=== PATIENT | male | born 1980 | race Two or more races ===

== ENCOUNTER 2023-09-06 08:46 | Emergency (ER) | payer OTHER, SELFPAY ==
[2023-09-06 08:54] VITALS: BP 127/80; PULSE 87; RESP 17; TEMP 36.6; O2SAT 98; BMI 26.6
[2023-09-06 09:17] LABS: IDNOW Serial# 08D9AD1C; Strep A Nucleic Acid Negative (Negative)
--- NOTE | 2023-09-06 09:24 | ED_ITS ---
HPI - URI/Sore Throat General Chief Complaint: General Medical Stated Complaint: Sore Throat Fever Time Seen by Provider: 09/06/23 09:11 Source: patient Mode of arrival: ambulatory Limitations: no limitations History of Present Illness HPI Narrative: Patient is a 43-year-old male who presents emergency department for evaluation fever 2 days. Reports his daughter has recently been ill at home and tested positive for flu. Denies chills, headache, dizziness, neck pain, neck stiffness, chest pain, shortness of breath, difficulty breathing, cough, nausea, vomiting, abdominal pain, numbness or tingling of the extremities, genitourinary symptoms. Related Data Allergies Allergy/AdvReac Type Severity Reaction Status Date / Time No Known Allergies Allergy Verified 09/06/23 08:55 Review of Systems Review of Systems: Yes all other systems are reviewed and are negative [facility] Past Medical History Attestation statement: The following information was validated with the patient. Source: old records reviewed Social History Social History Advance Directives: No Advance Directives Information Provided: Yes Physical Exam Vital Signs: Vital Signs: Last Vital Signs Temp 98 F 09/06/23 08:54 Pulse 87 09/06/23 08:54 Resp 17 09/06/23 08:54 BP 127/80 09/06/23 08:54 Pulse Ox 98 09/06/23 08:54 O2 Del Method Room Air 09/06/23 08:54 BMI result Body Mass Index 26.6 Appearance: Alert.?Oriented to person, place and time. No acute distress.?Normal affect. Eyes: Pupils equal, round and reactive to light.? ENT: TM normal bilaterally. Pharynx Mildly erythematous, no exudates. Uvula midline. No trismus. No drooling. Neck: Normal inspection.? Neck supple.??No cervical adenopathy CVS: Heart sounds normal. Normal heart rate and rhythm.? Pulses normal.?? Respiratory: No respiratory distress.? Lung sounds clear to auscultation bi laterally?? Abdomen: Soft and non-tender. Normoactive bowel sounds. Skin: Skin warm and dry.? Normal skin color.? ? Extremities: No lower extremity edema.? Neuro: Moves all extremities spontaneously. Sensation intact bilaterally. No motor deficits. Ambulates with normal steady gait. Medical Decision Making Medical Decision Making MDM Narrative: Patient is a 43-year-old male, presenting for evaluation of upper respiratory symptoms. COVID-19 testing negative. Influenza a testing positive, given duration of symptoms discussed Tamiflu, patient declines interest. Strep a testing is negative, exam not consistent with peritonsillar or retropharyngeal abscess. Well-appearing, nontoxic, afebrile, no tachycardia or tachypnea/hypoxia. Speaking clear full sentences, ambulatory with steady gait. Discussed conservative treatment including rest, hydration, Tylenol/ibuprofen as needed for fever and body aches, saline nasal spray, humidifier, qfzq-mqt-prlniqu cold medication. Advised to follow-up with primary care provider as needed, discussed reasons to return back to the emergency department. All questions were answered. Patient discharged home in stable condition. Differential Diagnosis Differential Diagnoses: The differential diagnosis associated with the presentation includes ( See narrative above) Admission/Observation Consideration of admission/observation: Escalation of care including admission/observation considered ( see narrative above) Lab Data MDM Lab Attestation statement: I reviewed the patient's lab results. ( see narrative above) Labs: Lab Results 09/06/23 Range/Units 09:01 Influenza Type A (PCR) POSITIVE A (Negative) Influenza Type B (PCR) NEGATIVE (Negative) RSV RNA Qual (PCR) NEGATIVE (Negative) SARS-CoV-2 RNA (RT-PCR) NEGATIVE (Negative) S. pyogenes GrpA JOSE ALFREDO Negative (Negative) Prescription Management I considered prescription management with: Pain Medication ( acetaminophen/ibuprofen) and Antibiotic ( suspect viral etiology antibiotics deferred) Discharge Plan Discharge Clinical Impression: Influenza A Patient Disposition: Home, Self-Care Instructions: Influenza (ED) Additional Instructions: Be sure to rest, stay well hydrated drinking plenty of fluids, eat small frequent meals. Tylenol/ibuprofen can be used as needed for fever/pain. Lpoc-btt-jbhdoht cold medications may be helpful as well for symptoms. Saline nasal spray, humidifier may be helpful for nasal congestion. You may return to the emergency department with any new or worsening symptoms or concerns. Follow-up with your primary care provider as needed. Should remain out of school/ work until symptoms have resolved and have been without a fever for 24 hours without the use of Tylenol or ibuprofen. Referrals: Physician,None [Primary Care Provider] - Print Language: Turkmen
--- NOTE | 2023-09-06 09:24 | ED.GENADULT ---
HPI - General Adult General Chief complaint: General Medical Stated complaint: Sore Throat Fever Time Seen by Provider: 09/06/23 09:11 Related Data Allergies Allergy/AdvReac Type Severity Reaction Status Date / Time No Known Allergies Allergy Verified 09/06/23 08:55 PMFSH Social History Social History Advance Directives: No Advance Directives Information Provided: Yes Physical Exam ED Vital Signs: Vital Signs - 24 hr 09/06/23 08:54 Temperature 98 F Pulse Rate 87 Respiratory Rate 17 Blood Pressure 127/80 Pulse Oximetry 98 Oxygen Delivery Method Room Air BMI result Body Mass Index 26.6 Medical Decision Making Lab Data Labs: Lab Results 09/06/23 Range/Units 09:01 S. pyogenes GrpA JOSE ALFREDO Negative (Negative) Discharge Plan Discharge Print Language: Amharic
[2023-09-06 09:44] LABS: Influenza A PCR POSITIVE (Negative); Influenza B PCR NEGATIVE (Negative); Resp Syncy Virus RNA Qual PCR NEGATIVE (Negative); SARS COV2 PCR INHOUSE NEGATIVE (Negative)
[2023-09-06 09:53] VITALS: BP 127/80; PULSE 87; RESP 17; TEMP 36.6; O2SAT 98
== END 2023-09-06 09:52 | disposition home or self-care (01) ==
PROVIDERS: Emergency Provider Emergency Medicine
DX: J10.1 Influenza due to other identified influenza virus with other respiratory manifestations (principal)
CPT/HCPCS: 0241U; 87651; 99283; 99284

== ENCOUNTER 2023-09-11 10:41 | Outpatient (AMB) | payer OTHER, SELFPAY ==
[2023-09-11 11:07] VITALS: BP 112/70; PULSE 79; TEMP 37; O2SAT 97; BMI 27.6
--- NOTE | 2023-09-11 11:07 | MHC.OFFWIV ---
Intake Vital Signs 09/11/23 11:07 Height 5 ft 3 in Weight 156 lb BMI 27.6 BP 112/70 Blood Pressure Location Lt brachial Position Sitting Pulse 79 Pulse Source Pulse Oximeter Temp 98.6 F Temp Source Temporal Artery Scan Pulse Oximetry (%) 97 Oxygen Delivery Method Room Air Intake Visit Reasons: EP Sore throat, headache, Fever Intake Note: pt is here today for sore throat headache fever started 1 week ago Patient Tobacco Use Status: Never used Tobacco Allergies No Known Allergies Allergy (Verified 09/11/23 11:28) Medication List - Last Reconciled 09/11/23 by Aftab Booker MD No Known Home Meds Do you need a note to return to daycare/school/sports/work: Yes HPI EP Sore throat, headache, Fever HPI Details 43 yr old male presents to the office for a sick visit. Charge Preparation Technician used. He was in the ER with URI sx over the weekend. Was diagnosed with Influenza A. Feeling much better, but needs a note for work. Reports he has no PCP. PFSH Social History Patient Tobacco Use Status: Never used Tobacco Physical Exam Vital Signs: Last Vital Signs Temp 98.6 F 09/11/23 11:07 Pulse 79 09/11/23 11:07 BP 112/70 09/11/23 11:07 Pulse Ox 97 09/11/23 11:07 Oxygen Delivery Method Room Air 09/11/23 11:07 BMI result Body Mass Index 27.6 Const General: cooperative, healthy appearing, comfortable and no acute distress Orientation/consciousness: patient oriented x3 Chest Chest palpation & inspection: normal inspection of the chest Resp Effort & Inspection: normal respiratory effort and able to speak in complete sentences Neuro General: patient oriented x3 Assessment & Plan Assessment & Plan (1) Influenza A: Code(s): J10.1 - Influenza due to other identified influenza virus with other respiratory manifestations Plan: Sx have resolved. NFW provided. Coding Level of Care Code Est Pt Level 3 (75405) Diagnoses Influenza A J10.1
== END 2023-09-11 12:09 | disposition home or self-care (01) ==
PROVIDERS: PCP Internal Medicine; Visit Provider Internal Medicine
DX: J10.1 Influenza due to other identified influenza virus with other respiratory manifestations (principal)
CPT/HCPCS: 99213

== ENCOUNTER 2024-01-13 07:31 | Outpatient (AMB) | payer OTHER, SELFPAY ==
[2024-01-13 07:33] VITALS: BP 120/80; PULSE 79; O2SAT 97; BMI 26.9
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
== END 2024-01-13 11:47 | disposition home or self-care (01) ==
PROVIDERS: PCP Internal Medicine; Visit Provider Internal Medicine
DX: Z00.00 Encounter for general adult medical examination without abnormal findings (principal)
CPT/HCPCS: 99396

== ENCOUNTER 2024-01-13 08:26 | Outpatient (REF) | payer OTHER, SELFPAY ==
[2024-01-13 10:09] LABS: MANUAL DIFF FLAG NO
[2024-01-13 10:16] LABS: Basophils Percent Auto 0.5 % (0-2); Eosinophils Absolute Auto 0.1 X10*3/uL (0.0-0.4); Eosinophils Percent Auto 1.5 % (0-4); Hematocrit 46.6 % (42.0-52.0); Hemoglobin 15.7 g/dl (14.0-18.0); Imm Gran Abs Auto 0.03 X10*3/uL (0.00-0.03); Imm Gran Pct Auto 0.4 % (0.0-0.4); Lymphocytes Absolute Auto 1.2 X10*3/uL (1.2-4.9); Lymphocytes Percent Auto 15.5 % (20-40); Mean Corpuscular HGB Conc 33.7 g/dl (31.0-36.0); Mean Corpuscular Hemoglobin 29.5 pg (27.0-33.0); Mean Corpuscular Volume 87.4 fL (80.0-98.0); Mean Platelet Volume 10.3 fL (9.4-12.4); Monocytes Absolute Auto 0.5 X10*3/uL (0.1-1.2); Monocytes Percent Auto 6.9 % (2-11); Neutrophils Absolute Auto 5.7 x10*3/uL (2.0-8.3); Neutrophils Percent Auto 75.2 % (45-73); Platelet Count 202 X10*3/uL (160-400); Red Blood Count 5.33 X10*6/uL (4.60-5.80); Red Cell Distribution Width 13.8 % (11.0-16.0); White Blood Count 7.6 X10*3/uL (4.8-10.8)
[2024-01-13 10:16] LABS: Appearance Urine Turbid; Color Urine Yellow; Glucose Urine UA Negative (Negative); Leukocyte Esterase Urine Trace (Negative); Nitrite Urine Negative (Negative); PH 5.5 (5.0-9.0); Specific Gravity - Urine 1.025 (1.005-1.025); UMIC TRIGGER UA YES; Urine Blood Small (1+) (Negative); Urine Ketones Negative (Negative); Urine Protein Trace mg/dL (Neg-Trace)
[2024-01-13 10:28] LABS: Bacteria Urine None Seen (None Seen); Hyaline Casts Urine 0-2 /LPF (0-2); Squamous Epithelial Cell Urine 0-2 /HPF (0-2)
[2024-01-13 11:35] LABS: Alanine Aminotransferase 20 U/L (0-40); Alkaline Phosphatase 71 U/L (39-117); Anion Gap 12 (12-20); Aspartate Amino Transferase 23 U/L (5-37); Bilirubin Total 0.4 mg/dL (0.0-1.0); Blood Urea Nitrogen 13 mg/dL (9-16); Calcium 9.3 mg/dL (8.4-10.2); Carbon Dioxide 27 mmol/L (22-29); Chloride 103 mmol/L (96-108); Cholesterol 225 mg/dL (<200); Estimated Glomerular Filt Rate > 60; Glucose Fasting 105 mg/dL (60-99); HDL Cholesterol 42 mg/dL (>40); LDL Cholesterol Calculated 149 mg/dL (<100); Potassium 3.9 mmol/L (3.3-5.1); Sodium 138 mmol/L (135-145); Total Protein 8.2 g/dL (6.5-8.0); Triglycerides 171 mg/dL (<150)
== END 2024-01-13 08:27 | disposition home or self-care (01) ==
LOC: HO.HMGCLDS 08:26
PROVIDERS: Visit Provider Internal Medicine
DX: Z00.00 Encounter for general adult medical examination without abnormal findings (principal)
CPT/HCPCS: 36415; 80053; 80061; 81001; 85025

== ENCOUNTER 2024-01-17 13:22 | Outpatient (AMB) | payer OTHER, SELFPAY ==
--- NOTE | 2024-01-17 13:25 | MHC.OFFWIV ---
Intake Vital Signs 01/17/24 13:27 Height 5 ft 3 in Weight 153 lb BMI 27.1 BP 110/70 Blood Pressure Location Rt brachial Position Sitting Pulse 68 Pulse Source Pulse Oximeter Pulse Oximetry (%) 98 Oxygen Delivery Method Room Air Intake Visit Reasons: EP- Reaction to meds, Norwegian Speaking Intake Note: Patient here to reaction to med that was given by pcp, states yesterday he started to have chest pain and double vision. Patient Tobacco Use Status: Never used Tobacco Allergies No Known Allergies Allergy (Verified 01/17/24 13:28) Do you need a note to return to daycare/school/sports/work: No HPI HPI Comments History of Present Illness Details 43 y/o Norwegian speaking male patient who presents to the walk in c/o medication reaction. Pt was recently seen for Physical Examination by PCP and his U/A indicated UTI. He was prescribed Ciproflaxin BID for 7 days. Today Pt reports taking it yesterday Morning and evening. He does report feeling malaise, blurry vision and chest tightness immediately after taking medicine. Denies SOB, Facial or tongue swelling or Rash/hives. 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, 4 children, management, Housing: Apartment Patient Tobacco Use Status: Never used Tobacco e-Cigarette/Vaping Use: Never Used service: No Current occupational status: employed Cognitive needs: No Hearing needs: No Vision needs: No Review of Systems Const All systems reviewed & are unremarkable except as noted in HPI and below Physical Exam Vital Signs: Last Vital Signs Pulse 68 01/17/24 13:27 BP 110/70 01/17/24 13:27 Pulse Ox 98 01/17/24 13:27 Oxygen Delivery Method Room Air 01/17/24 13:27 BMI result Body Mass Index 27.1 Const General: cooperative and comfortable Orientation/consciousness: patient oriented x3 Resp Effort & Inspection: normal respiratory effort and able to speak in complete sentences Auscultation: clear to auscultation bilaterally, no crackles, no rales, no rhonchi and no wheezes Cardio Heart sounds: S1 normal heart sound present and S2 normal heart sound present Neuro General: patient oriented x3, gait normal and moves all extremities Psych Speech and movement: Normal speech and movement present Assessment & Plan Assessment & Plan (1) UTI (urinary tract infection): Code(s): N39.0 - Urinary tract infection, site not specified Qualifiers: Urinary tract infection type: acute cystitis Hematuria presence: without hematuria Qualified Code(s): N30.00 - Acute cystitis without hematuria Plan: Discontinue Cipro. Most likely not an allergy. Probably sensitivity. Ordered Macrobid No symptoms today. (2) Medication reaction: Code(s): T50.905A - Adverse effect of unspecified drugs, medicaments and biological substances, initial encounter Qualifiers: Encounter type: initial encounter Qualified Code(s): T50.905A - Adverse effect of unspecified drugs, medicaments and biological substances, initial encounter Plan: Not true Allergy , Probably sensitivity Stop Cipro May Take Benadrly Medications: New nitrofurantoin monohyd/m-cryst 100 mg (Macrobid) must administer with a meal/food 100 mg PO Q12H 7 days 14 caps 0RF N30.00 - Acute cystitis without hematuria Discontinued ciprofloxacin HCl Discontinued Reason: Patient no longer taking 500 mg PO BID 20 tabs 0RF Coding Level of Care Code Est Pt Level 3 (88741) Diagnoses Acute cystitis without hematuria N30.00 Urinary tract infection type: acute cystitis Hematuria presence: without hematuria Adverse effect of drug, initial encounter T50.905A Encounter type: initial encounter Time Spent (min) 15
[2024-01-17 13:27] VITALS: BP 110/70; PULSE 68; O2SAT 98; BMI 27.1
== END 2024-01-17 13:54 | disposition home or self-care (01) ==
PROVIDERS: PCP Internal Medicine; Visit Provider Nurse Practitioner Family
DX: N30.00 Acute cystitis without hematuria (principal); T50.905A Adverse effect of unspecified drugs, medicaments and biological substances, initial encounter
CPT/HCPCS: 99213

== ENCOUNTER 2024-03-23 12:47 | Outpatient (AMB) | payer OTHER, SELFPAY ==
--- NOTE | 2024-03-23 13:18 | MHC.PC.OV ---
Vital Signs 03/23/24 13:19 Height 5 ft 3 in Weight 158 lb BMI 28.0 BP 108/78 Blood Pressure Location Lt brachial Position Sitting Pulse 82 Pulse Source Pulse Oximeter Pulse Oximetry (%) 97 Oxygen Delivery Method Room Air Intake Visit Reasons: heartburn symptoms Intake Note: Pt is here today for a follow up visit. Allergies ciprofloxacin [From Cipro] Adverse Reaction (Verified 03/23/24 15:24) Abdominal Pain Medication List - Last Reconciled 03/23/24 by Annette Caba MD No Known Home Meds Tobacco use date assessed: 03/23/24 Dental Screening Dental Screen Date: 01/13/24 HPI heartburn symptoms HPI Details Pt presents for follow-up of UTI. He completed a course of antibiotic and denies dysuria urinary frequency. 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, 4 children, management, Housing: Apartment Patient Tobacco Use Status: Never used Tobacco e-Cigarette/Vaping Use: Never Used service: No Current occupational status: employed Cognitive needs: No Hearing needs: No Vision needs: No Questionnaire Thrive Questionnaire Date Thrive assessed: 01/07/24 I am a: Patient What is your living situation today?: I have a steady place to live Within the past 12 months, did the food you bought not last and you didn't have the money to get more?: Sometimes True Within the past 12 months, did you worry whether your food would run out before you got money to buy more?: Sometimes True Do you have trouble paying for medicines?: Yes Do you have trouble getting transportation to medical appointments?: No Do you have trouble paying your heating and electricity bill?: No Do you have trouble taking care of your child, family member or friend?: No Do you have trouble with day-to-day activities such as bathing, preparing meals, shopping, managing finances, etc.?: No Are you currently unemployed and looking for a job?: Yes Are you interested in more education?: No THRIVE Score: 2 CHAUNCEY-7 AMB Questionnaire CHAUNCEY-7 Date CHAUNCEY - 7 assessed: 01/13/24 Source: Developed by Drs. Frederick Salamanca, Sofia Garcia, Markel Reid and colleagues, with an educational brooke from [employer]. Review of Systems Const All systems reviewed & are unremarkable except as noted in HPI and below ENT Reports no additional complaints Card Reports no additional complaints Resp Reports no additional complaints GI Reports no additional complaints Reports no additional complaints Physical exam (Primary Care) Vital Signs: Last Vital Signs Pulse 82 03/23/24 13:19 BP 108/78 03/23/24 13:19 Pulse Ox 97 03/23/24 13:19 Oxygen Delivery Method Room Air 03/23/24 13:19 BMI result Body Mass Index 28.0 Tobacco/Smoking Status: Tobacco use Status Tobacco use date assessed 03/23/24 03/23/24 13:23 Patient Tobacco Use Status Never used Tobacco 03/23/24 13:19 e-Cigarette/Vaping Use Never Used 03/23/24 13:19 Thrive Assessment: Date of Thrive Assessment Date Thrive assessed 01/07/24 03/23/24 13:19 Const General: no acute distress Resp Effort & Inspection: normal respiratory effort Auscultation: clear to auscultation bilaterally Cardio Rhythm: regular rhythm Heart sounds: S1 normal heart sound present and S2 normal heart sound present GI Inspection: Yes normal to inspection Palpation (GI): Soft to palpation Percussion: Yes normal to percussion Auscultation: normal bowel sounds Coding Level of Care Code Est Pt Level 3 (05675) Diagnoses Acute cystitis without hematuria N30.00 Hematuria presence: without hematuria Urinary tract infection type: acute cystitis Assessment & Plan Assessment & Plan (1) UTI (urinary tract infection): Code(s): N39.0 - Urinary tract infection, site not specified Category: Medical Qualifiers: Hematuria presence: without hematuria Urinary tract infection type: acute cystitis Qualified Code(s): N30.00 - Acute cystitis without hematuria Plan: Check urinalysis urine culture. Orders: Orders UA w Microscopic Today N30.00 - Acute cystitis without hematuria Urine Culture Today N30.00 - Acute cystitis without hematuria CT NG by PCR Today N30.00 - Acute cystitis without hematuria
[2024-03-23 13:19] VITALS: BP 108/78; PULSE 82; O2SAT 97; BMI 28.0
== END 2024-03-23 15:26 | disposition home or self-care (01) ==
LOC: HO.HMCC 12:48
PROVIDERS: PCP Internal Medicine; Visit Provider Internal Medicine
DX: N30.00 Acute cystitis without hematuria (principal)

== ENCOUNTER 2024-03-23 12:47 | Outpatient (REF) | payer OTHER, SELFPAY ==
[2024-03-23 16:12] LABS: Appearance Urine Clear; Color Urine Yellow; Glucose Urine UA Negative (Negative); Leukocyte Esterase Urine Negative (Negative); Nitrite Urine Negative (Negative); PH 5.5 (5.0-9.0); UMIC TRIGGER UA YES; Urine Blood Small (1+) (Negative); Urine Ketones Negative (Negative); Urine Protein Negative (Neg-Trace)
[2024-03-23 16:32] LABS: Bacteria Urine None Seen (None Seen); Hyaline Casts Urine 0-2 /LPF (0-2); RBC Urine 0-2 /HPF (0-2); Squamous Epithelial Cell Urine 0-2 /HPF (0-2); WBC Urine 0-5 /HPF (0-5)
== END 2024-03-23 12:48 | disposition home or self-care (01) ==
LOC: HO.HMGCLDS 12:47
PROVIDERS: PCP Internal Medicine; Visit Provider Internal Medicine
DX: N30.00 Acute cystitis without hematuria (principal)
CPT/HCPCS: 81001; 87086; 99212

== ENCOUNTER 2024-04-02 11:40 | Outpatient (REF) | payer OTHER, SELFPAY | END 2024-04-02 11:41 | disposition home or self-care (01) | LOC: HO.HMGCX 11:40 | PROVIDERS: PCP Internal Medicine; Visit Provider Internal Medicine | DX: R31.29 Other microscopic hematuria (principal) | CPT/HCPCS: 76775 ==

== ENCOUNTER 2024-04-06 08:55 | Outpatient (REF) | payer OTHER, SELFPAY ==
--- NOTE | ~2024-04-06 | US_ITS ---
EXAMINATION: US PELVIS LIMITED (BLADDER) CLINICAL INFORMATION: Microscopic hematuria. COMPARISON: None available. TECHNIQUE: Real-time imaging of the bladder. FINDINGS: BLADDER: Well distended and normal. Bilateral ureteral jets are demonstrated. Prevoid bladder volume is 474 mL. Postvoid bladder volume is 85 mL. PROSTATE: Prostate appears normal in volume measuring 2.8 x 3.1 x 3.7 cm for a volume of 17 mL. US/US bladder IMPRESSION: 85 mL postvoid residual. Normal size prostate. Electronically signed by: Dalton Alba MD 04/21/2024 01:32 PM EST
== END 2024-04-06 08:56 | disposition home or self-care (01) ==
LOC: HO.HMGCX 08:55
PROVIDERS: PCP Internal Medicine; Visit Provider Internal Medicine
DX: R31.29 Other microscopic hematuria (principal)
CPT/HCPCS: 76857

== ENCOUNTER 2024-08-31 07:41 | Outpatient (REF) | payer OTHER, SELFPAY ==
--- OUTSIDE RECORDS SUMMARY | 2024-08-31 07:44 | XMS_ITS | Clinical Summary ---
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 60 tablet 5 09/21/19 25 Active omeprazole OTC (PriLOSEC OTC) 20 MG EC tabletIndications: Heartburn Take 1 tablet (20 mg) by mouth before breakfast. Do not crush, chew, or split. 30 tablet 11 5 08/22/19 26 Active Active Problems Problem Noted Date Diagnosed Date High cholesterol 08/21/2024 Heartburn 08/21/2024 History of vitamin D deficiency 08/21/2024 Encounters Date Type Department Care Team Description 08/21/2024 1:15 PM EDT Office Visit [facility] [address] [place] [address] Genaro Chairez MD Lateral epicondylitis of right elbow (Primary Dx); High cholesterol; Screening examination for STI; Heartburn; History of vitamin D deficiency 08/21/2024 Travel 08/14/2024 Patient Outreach [facility] [address] [place], [place] [id number] Genaro Chairez MD Pre-visit Planning (SDOH negative, Tobacco screening negative. ) 06/05/2024 Telephone [facility] [address] [place], [place] [phone] Benny Dangelo MD telephone call from Last 3 Months Immunizations Name Administration Dates Next Due Tdap 08/21/2024 Family History Medical History Relation Name Comments Diabetes Father Diabetes Mother Relation Name Status Comments Father Mother Social History Tobacco Use Types Packs/Day Years Used Date Smoking Tobacco: Never Smokeless Tobacco: Never Tobacco Cessation:Counseling Given: Not Answered Alcohol Use Standard Drinks/Week Comments Yes 0 (1 standard drink = 0.6 oz pur e alcohol) socially Depression Answer Date Recorded Patient Health Questionnaire-9 Score 17 08/21/2024 Patient Health Questionnaire-9 Score 17 08/21/2024 Last PHQ-9: Questionnaire Data Not on file 0 08/21/2024 Housing Stability Answer Date Recorded What is your housing situation today? I have diana baca 08/14/[address] you li ve. Do you have problems with any of the following? None of the above 08/14/2024 Food Insecurity Answer Date Recorded Within the past 12 months, y ou worried that your food would run out before you got money to buy more: Sometimes True 2024 Within the past 12 months,th e food you bought just didn't last and you didn't have enough money to get more: Sometimes True 08/21/2024 Transportation Answer Date Recorded In the past 12 months, has l ack of transportation kept you from medical appts, meetings, work or from getting things needed for daily living? No 08/14/2024 Utilities Answer Date Recorded In the past 12 months, has t he electric, gas, oil or water company threatened to shut off services in your home? 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[employer], [employer] Support Services Specialist Not on file Not on file Not on file Last Filed Vital Signs Vital Sign Reading Time Taken Comments Blood Pressure 119/76 08/21/2024 1:22 PM EDT Pulse 84 08/21/2024 1:22 PM EDT Temperature 37.3 ??C (99.1 ??F) 08/21/2024 1:22 PM ED T Respiratory Rate 18 08/21/2024 1:22 PM EDT Oxygen Saturation 98% 08/21/2024 1:22 PM EDT Inhaled Oxygen Concentration - - Weight 70.5 kg (155 lb 6.4 oz) 08/21/2024 1:22 P M EDT Height 162.6 cm (5' 4 ) 08/21/2024 1:22 PM EDT Body Mass Index 26.67 08/21/2024 1:22 PM EDT Plan of Treatment Upcoming Encounters Date Type Department Care Team (Late st Contact Info) Description 12/09/2024 2:15 PM EDT Office Visit [facility] [address] [place] [address] Name, MD Genaro [address] [place], [place] [phone] Health Maintenance Due Date Last Done Comments HIV Screening 1982 Lipid Panel 1982 Family Planning (PISQ) 1997 Hepatitis C Screening 2000 Hepatitis B Vaccines (1 of 3 - 19+ 3-dose series) 2001 COVID-19 Vaccine ( - 2023-2 5 season) 2024 Influenza Vaccine (#1) 2024 Depression Monitoring 02/20/2025 08/21/2024 , 08/21/2024 Alcohol/Substance Use Screening 08/21/2025 08/21/2024 Depression Screening 08/21/2025 08/21/2024, 08/21/2024 SDOH Screening 08/21/2025 08/21/2024 Tobacco Screening 08/21/2025 08/21/2024 Zoster Vaccines (1 of 2) 2032 DTaP/Tdap/Td Vaccines (2 - T d or Tdap) 08/21/2034 08/21/2024 RSV Patients and Patients Aged 60 years or older (1 - 1-dose 75+ series) 2057 HIB Vaccines Aged Out No longer eligi ble based on patient's age to complete this topic HPV Vaccines Aged Out No longer eligi ble based on patient's age to complete this topic Hepatitis A Vaccines Aged Out No long er eligible based on patient's age to complete this topic IPV Vaccines Aged Out No longer eligi ble based on patient's age to complete this topic Meningococcal Vaccine Aged Out No jd michael eligible based on patient's age to complete this topic Pneumococcal Vaccine: Pediatrics (0 to 5 Years) and At-Risk Patients (6 to 49) Years) Aged Out No longer eligible b ased on patient's age to complete this topic RSV under 20 months Aged Out No longe r eligible based on patient's age to complete this topic Rotavirus Vaccines Aged Out No longer eligible based on patient's age to complete this topic Insurance [facility] [address] [place] [address] [facility] MEDIC[facility] ADVANTAGE Care Teams Sheet Metal Worker Relationship Specialty Start Date End Date Name, MD Genaro [address] [place] [address] PCP - General Internal Medicine 08/21/24
[2024-08-31 08:01] LABS: MANUAL DIFF FLAG NO
[2024-08-31 08:08] LABS: Basophils Percent Auto 0.4 % (0-2); Eosinophils Absolute Auto 0.1 X10*3/uL (0.0-0.4); Eosinophils Percent Auto 1.3 % (0-4); Hematocrit 47.7 % (42.0-52.0); Hemoglobin 15.7 g/dl (14.0-18.0); Imm Gran Abs Auto 0.17 X10*3/uL (0.00-0.03); Imm Gran Pct Auto 1.8 % (0.0-0.4); Lymphocytes Absolute Auto 1.7 X10*3/uL (1.2-4.9); Lymphocytes Percent Auto 17.5 % (20-40); Mean Corpuscular HGB Conc 32.9 g/dl (31.0-36.0); Mean Corpuscular Volume 88.2 fL (80.0-98.0); Mean Platelet Volume 9.4 fL (9.4-12.4); Monocytes Absolute Auto 0.6 X10*3/uL (0.1-1.2); Monocytes Percent Auto 5.9 % (2-11); Neutrophils Percent Auto 73.1 % (45-73); Platelet Count 261 X10*3/uL (160-400); Red Blood Count 5.41 X10*6/uL (4.60-5.80); Red Cell Distribution Width 13.2 % (11.0-16.0); White Blood Count 9.6 X10*3/uL (4.8-10.8)
[2024-08-31 09:07] LABS: HBS Num1 0.21 mIU/mL (0-7.99); HBsAGNum1 0.31 S/CO (0.00-0.99); HIV AB/AG Nonreactive (Nonreactive); HIV Num 1 0.09 S/CO (0.00-0.99); Hepatitis B Surface Antigen Negative (Negative); ~HepC Num1 0.18 S/CO (0.00-0.79); ~Hepatitis B Surface Antibody NONREACTIVE (Nonreactive); ~Hepatitis C Antibody Nonreactive (Nonreactive)
[2024-08-31 09:13] LABS: Alanine Aminotransferase 40 U/L (0-40); Albumin Level 4.1 g/dL (3.5-5.0); Alkaline Phosphatase 70 U/L (39-117); Anion Gap 9 (12-20); Aspartate Amino Transferase 35 U/L (5-37); Bilirubin Total 0.5 mg/dL (0.0-1.0); Blood Urea Nitrogen 15 mg/dL (9-16); Calcium 9.4 mg/dL (8.4-10.2); Carbon Dioxide 27 mmol/L (22-29); Chloride 106 mmol/L (96-108); Cholesterol 210 mg/dL (<200); Estimated Glomerular Filt Rate > 60; Glucose Random 103 mg/dL (60-115); HDL Cholesterol 44 mg/dL (>40); LDL Cholesterol Calculated 147 mg/dL (<100); Potassium 4.3 mmol/L (3.3-5.1); Sodium 138 mmol/L (135-145); Total Protein 8.3 g/dL (6.5-8.0); Triglycerides 99 mg/dL (<150); Vitamin D 25-OH Total 40.8 ng/mL (>30)
[2024-08-31 11:59] LABS: CT PCR NOT DETECTED (Not Detect.); NG PCR NOT DETECTED (Not Detect.)
[2024-09-01 11:28] LABS: RPR Rapid Plasma Reagin NON-REACTIVE (NON-REACTIVE)
== END 2024-08-31 07:42 | disposition home or self-care (01) ==
LOC: HO.LAB 07:41
PROVIDERS: PCP Internal Medicine Geriatric Medicine; Visit Provider Internal Medicine Geriatric Medicine
DX: Z11.3 Encounter for screening for infections with a predominantly sexual mode of transmission (principal); R12 Heartburn; Z86.39 Personal history of other endocrine, nutritional and metabolic disease; E78.00 Pure hypercholesterolemia, unspecified
CPT/HCPCS: 80053; 80061; 82306; 85025; 86592; 86706; 86803; 87340; 87389; 87491; 87591